=== PATIENT | female | born 1965 | race Hispanic/Latino ===

== ENCOUNTER 2018-01-28 16:24 | Emergency (ER) | payer OTHER ==
[~2018-01-28] VITALS: Ht 157.5 cm; Wt 71.7 kg
[2018-01-28 17:50] LABS: BASOPHILS % 0.2 % (0.0-1.0); EOSINOPHILS # (AUTO) 0.1 (0.0-0.4); EOSINOPHILS % 0.6 % (0.0-6.0); HEMATOCRIT 38.8 % (34.2-44.1); HEMOGLOBIN 13.1 g/dL (12.0-16.0); LYMPHOCYTES # (AUTO) 2.6 (1.0-3.2); LYMPHOCYTES % 27.3 % (18.0-39.1); MEAN CORPUSCULAR HEMOGLOBIN 29.3 pg (28-32); MEAN CORPUSCULAR HGB CONC 33.8 g/dL (31-35); MEAN CORPUSCULAR VOLUME 86.8 fL (81-99); MONOCYTES # (AUTO) 0.7 (0.2-0.8); MONOCYTES % 7.1 % (4.4-11.3); NEUTROPHILS % 64.3 % (38.7-80.0); PLATELET COUNT 402 x10e3/uL (140-360); RED BLOOD COUNT 4.47 x10e6/uL (3.6-5.1); RED CELL DISTRIBUTION WIDTH 12.9 % (11.7-14.4)
[2018-01-28 18:01] LABS: BILIRUBIN,URINE NEGATIVE (NEGATIVE); CLARITY,URINE CLEAR (CLEAR); COLOR,URINE YELLOW (YELLOW); KETONES,URINE NEGATIVE (NEGATIVE); LEUKOCYTE ESTERASE ,URINE 1+ (NEGATIVE); NITRITE,URINE NEGATIVE (NEGATIVE); PROTEIN,URINE DIPSTICK NEGATIVE (NEGATIVE); URINE UROBILINOGEN 0.2 mg/dL (0.2 - 1)
[2018-01-28 18:06] LABS: ALANINE AMINOTRANSFERASE 19 IU/L (0-55); ALBUMIN 3.6 g/dL (3.5-5.0); ALBUMIN/GLOBULIN RATIO 0.8 (0.8-2.0); ALKALINE PHOSPHATASE 121 IU/L (40-150); ANION GAP 13.4 mmol/L (8-16); BLOOD UREA NITROGEN 15 mg/dL (7-26); BUN/CREATININE RATIO 15 (6-25); CALCIUM 9.9 mg/dL (8.4-10.2); CARBON DIOXIDE 27 mmol/L (22-29); CHLORIDE 101 mmol/L (98-107); CREATINE KINASE 61 IU/L (29-168); CREATININE, SERUM 1.01 mg/dL (0.57-1.11); EST GLOMERULAR FILTRATION RATE 57 ML/MIN (60-); GLUCOSE 140 mg/dL (74-118); POTASSIUM 3.4 mmol/L (3.5-5.1); SODIUM 138 mmol/L (136-145)
[2018-01-28 18:10] LABS: BACTERIA,URINE RARE /HPF; EPITHELIAL CELLS,URINE FEW /LPF; MUCUS,URINE FEW (RARE); TRANSITIONAL EPI CELLS,URINE FEW
--- NOTE | 2018-01-28 18:20 | Diagnostic Imaging Report ---
PROCEDURE: A single AP view of the chest. COMPARISON: None. INDICATIONS: HIGH BLOOD PRESSURE/DIZZINESS/CHEST PAIN FINDINGS: Lines/tubes: None. Lungs: The lungs are well inflated and clear. There is no evidence of pneumonia or pulmonary edema. Pleura: There is no pleural effusion or pneumothorax. Heart and mediastinum: The heart and the mediastinum are unremarkable. Bones: No acute bony abnormality. IMPRESSION: 1. No acute cardiopulmonary disease. Dictated by: Nishant Scott M.D. on 01/28/2018 at 18:21 Electronically approved by: Nishant Scott M.D. on 01/28/2018 at 18:21
[2018-01-28 20:21] VITALS: BP 142/91
== END 2018-01-28 20:23 | disposition home or self-care (01) ==
LOC: ER 16:24
DX: R20.2 Paresthesia of skin (principal); N30.90 Cystitis, unspecified without hematuria
CPT/HCPCS: 36415; 71045; 80053; 81001; 82550; 82553; 84484; 85025; 93005; 99284

== ENCOUNTER 2019-04-24 12:11 | Emergency (ER) | payer OTHER ==
[~2019-04-24] VITALS: Ht 157.5 cm; Wt 81.6 kg
--- OUTSIDE RECORDS SUMMARY | 2019-04-24 12:14 | XMS REPORT ---
Author [facility] Address Unknown Phone Unavailable Care Team Providers Care Ballistics Professor Name Role Phone Charlee TURCIOS Unavailable Unavailable Problems This patient has no known problems. Allergies, Adverse Reactions, Alerts This patient has no known allergies or adverse reactions. Medications This patient has no known medications. Results Test Description Test Time Test Comments Text Results Atomic Results Result Comments CHEST SINGLE (PORTABLE) [place] [address] Patient Name: JOSELITO HERR MR #: [id number] : 1965 Age/Sex: 52/F Req #: [id number] Adm Physician: Ordered by: AMENA TURCIOS MD Report #: [id number] Location: ER Room/Bed: Procedure: [id number] DX/CHEST SINGLE (PORTABLE) Exam Date: 01/28/18 Exam Time: 1755 REPORT STATUS: Signed PROCEDURE: A single AP view of the chest. COMPARISON: None. INDICATIONS: HIGH BLOOD PRESSURE/DIZZINESS/CHEST PAIN FINDINGS: Lines/tubes: None. Lungs: The lungs are well inflated and clear. There is no evidence of pneumonia or pulmonary edema. Pleura: There is no pleural effusion or pneumothorax. Heart and mediastinum: The heart and the mediastinum are unremarkable. Bones: No acute bony abnormality. IMPRESSION: 1. No acute cardiopulmonary disease. Dictated by: Shira Scott M.D. on 01/28/2018 at 18:21 Electronically approved by: Shira Scott M.D. on 01/28/2018 at 18:21 Dictated By: SHIRA SCOTT MD 20 Transcribed By: FRANKLIN on 01/28/181820 COPY TO: AMENA TURCIOS MD
--- NOTE | 2019-04-24 13:44 | Diagnostic Imaging Report ---
Exam: Left Knee Series. History: Knee pain Comparison: None Findings: 3 views of the left knee were obtained. No acute fracture or dislocation. Alignment appears anatomic. No joint effusion. There are mild tricompartmental degenerative changes with joint space narrowing and osteophyte formation. Impression: No acute osseous injury. Mild tricompartmental degenerative changes. Signed by: Jay oDwning MD on 04/24/2019 1:41 PM
[2019-04-24 13:51] VITALS: BP 135/65
== END 2019-04-24 13:55 | disposition home or self-care (01) ==
LOC: FSED 12:11
DX: M25.562 Pain in left knee (principal); X50.1XXA Overexertion from prolonged static or awkward postures, initial encounter; Y92.008 Other place in unspecified non-institutional (private) residence as the place of occurrence of the external cause; E11.9 Type 2 diabetes mellitus without complications
CPT/HCPCS: 99283

== ENCOUNTER 2020-01-13 12:40 | Observation (INO) | payer OTHER ==
[~2020-01-13] VITALS: Ht 157.5 cm; Wt 83.0 kg
--- NOTE | 2020-01-13 13:28 | Diagnostic Imaging Report ---
History: Dizziness, slurred speech, 2 hours. Comparison studies: None Technique: Axial images were obtained from the skull base to the vertex. Coronal and sagittal reconstructions obtained from the axial data. Dose modulation, iterative reconstruction, and/or weight based adjustment of the mA/kV was utilized to reduce the radiation dose to as low as reasonably achievable. Findings: Scalp/skull: No abnormalities. No fractures, blastic or lytic lesions. Extra-axial spaces: No masses. No fluid collections. Brain sulci: Appropriate for age. Ventricles: Normal in size and configuration. No hydrocephalus. Parenchyma: No abnormal densities. No masses, hemorrhage, acute or chronic cortical vascular insults. Sellar/suprasellar region: No abnormalities Craniocervical junction: Patent foramen magnum. No Chiari one malformation. IMPRESSION: No abnormalities . Signed by: DR Jeferson Villalobos M.D. on 01/13/2020 1:25 PM
[2020-01-13] MEDS ORDERED: FAMOTIDINE 20 MG TAB PO SCH (13:30)
[2020-01-13] MEDS ORDERED: DEXTROSE 50% SYRINGE 50 ML IV PRN (13:30)
[2020-01-13] MEDS ORDERED: ZOLPIDEM TARTRATE 5 MG TAB PO PRN (13:30)
[2020-01-13] MEDS ORDERED: ACETAMINOPHEN 325 MG TAB PO PRN (13:30)
[2020-01-13] MEDS ORDERED: DIPHENHYDRAMINE HCL INJ 50 MG/ML VIAL IV PRN (13:30)
[2020-01-13] MEDS ORDERED: ONDANSETRON HCL INJ 2MG/ML 2ML 2 MG/ML VIAL IV PRN ×2 (13:30→19:15)
--- NOTE | 2020-01-13 14:55 | NUR ---
Received patient from [facility] ambulance via stretcher. Patient alert/oriented x4, denies pain at this time, no visible signs of distress noted. Ambulated to bed independently, steady gait observed. Oriented to room, call light, bed rails, bathroom, and visiting hours. Verbalized understanding. Thai speaking. 20G IV to right upper arm patent to flush, dressing C/D/I. No neurological deficits noted at this time. Vital signs stable. Call light within reach.
[2020-01-13 15:24] VITALS: BP 145/70
[2020-01-13 16:00] VITALS: BP 145/70
[2020-01-13] MEDS ORDERED: INSULIN REGULAR, HUMAN 100 UNIT/1 ML 3ML VIAL SQ SCH (16:30)
--- NOTE | 2020-01-13 18:45 | NUR ---
Dr. Banks called for order clarification. Ordered Tramadol 50mg every four hours as needed for pain instead of acetaminophen due to allergy. Patient can continue home Metformin 850mg twice daily. Orders read back and verified. No further orders at this time. Remaining home medications to be verified.
[2020-01-13] MEDS ORDERED: TEMAZEPAM 7.5 MG CAP PO PRN (19:00)
--- NOTE | 2020-01-13 19:11 | Diagnostic Imaging Report ---
EXAMINATION: MRI of the brain without contrast. HISTORY: Slurring speech. Transient ischemic attack, hyperglycemia, hypertension. COMPARISON: Head CT 01/13/2020 TECHNIQUE: Sagittal T2; axial DWI, T2, FLAIR, T1-IR, T2 gradient echo; coronal FLAIR. IMAGE QUALITY: Adequate. FINDINGS: Parenchyma: 1. No abnormal signal intensity 2. No mass, hemorrhage, acute or chronic infarcts. Skull: Unremarkable. Vessels: Expected flow voids present in the major arteries and dural sinuses. Extra-axial spaces: No abnormal signal intensity or mass effect. Brain volume: Within normal limits for age. Ventricles: No hydrocephalus or displacement. Foramen magnum: Unremarkable. Sella: Unremarkable. Paranasal / mastoid sinuses: No significant inflammatory disease. IMPRESSION: No intracranial abnormalities, particularly no acute infarct. Signed by: Dr. Dee Umana M.D. on 01/13/2020 7:08 PM
[2020-01-13] MEDS ORDERED: CLONIDINE HCL 0.1 MG TAB PO PRN (19:15)
--- NOTE | 2020-01-13 19:30 | NUR ---
Bedside shift report given to night nurse. Patient resting at this time, no visible signs of distress noted. Call light within reach.
[2020-01-13 20:00] VITALS: BP 119/84
[2020-01-13] MEDS ORDERED: METFORMIN HCL850 MG PO (20:07)
--- NOTE | 2020-01-13 20:11 | Diagnostic Imaging Report ---
EXAM: Abdomen Views INDICATION: ^NAUSEA ^[id number] ^[id number] COMPARISON: None FINDINGS: Nonobstructive bowel gas pattern. No signs of pneumoperitoneum. No calcification overlying renal shadows. No acute osseous abnormality. Lung bases are clear. IMPRESSION: Nonobstructive bowel gas pattern. Signed by: Dr. Del Ho MD on 01/13/2020 8:08 PM
[2020-01-13] MEDS ORDERED: TRAMADOL HCL 50 MG TAB PO PRN (20:15)
[2020-01-13 21:00] VITALS: BP 119/84
[2020-01-13] MEDS ORDERED: INSULIN LISPRO 100 UNIT/1 ML 3ML VIAL SQ SCH (21:00)
[2020-01-13] MEDS ORDERED: SIMVASTATIN 40 MG TAB PO SCH (21:00)
--- NOTE | 2020-01-13 21:00 | NUR ---
Assessment done.no resp.distress.iv to right upperarm 20 g patent.ambulates.bed locked and in lowest position.phone and call light within reach.instructed to call for assistance as needed.
--- NOTE | 2020-01-13 22:25 | History and Physical ---
PRIMARY CARE DOCTOR: Tutu Schofield MD. CHIEF COMPLAINT: Altered mental status. HISTORY OF PRESENT ILLNESS: This is a 54-year-old woman, who presented with altered mental status. Specifically around 11 o'clock this morning the patient felt headache in the back of her head, left side worse than her right side, which she attributed to her migraine. Subsequently it got worse to the point she had no energy and subsequently she just slumped onto the couch. The daughter subsequently noted she was so weak that she could barely speak. Last night before she went to sleep she was a little nauseated. This morning when she woke up the patient had felt tired, which is unusual for her, however, she was able to do her usual thing until 11 o'clock this morning. The patient denies any chest pain, shortness of breath per se, no fever and no cough. The patient does not take aspirin on a regular basis. At home blood pressure was taken, systolic was 200, which prompted emergency room visit, again normally she does not take anything for blood pressure. PAST MEDICAL AND SURGICAL HISTORY: 1. Obesity. 2. Diabetes. 3. . 4. Bladder surgery. MEDICATIONS: Please see medication reconciliation form. ALLERGIES: TYLENOL AND IBUPROFEN. SOCIAL HISTORY: Does not smoke. FAMILY HISTORY: Heart disease and diabetes. REVIEW OF SYSTEMS: A 10-point review of system obtained and nothing else is significant other than what is stated in the HPI. PHYSICAL EXAMINATION: VITAL SIGNS: Temperature 97.6, pulse 84, respiratory rate 18, blood pressure 173/92. GENERAL: No acute distress. SKIN: No rash. HEENT: Anicteric. Oropharynx is clear. LUNGS: Clear bilaterally. HEART: Regular rate and rhythm. Normal S1, S2. ABDOMEN: Soft, nondistended, nontender. Normoactive bowel sounds. MUSCULOSKELETAL: Painless range of motion. NEUROLOGIC: Alert and oriented x3. Cranial nerves II through XII intact. PSYCHIATRIC: No hallucination. LABORATORY DATA: Laboratory quiroz fairly benign with sugar in the 170s. Head CT did not show any acute disease. EKG, nonspecific. ASSESSMENT AND PLAN: 1. Nausea profound generalized weakness with headache, nonspecific, specifically the patient did not endorse slurred speech, however, given hypertensive episode we will monitor overnight on telemetry. We will repeat troponin in the morning. We will get a MRI of the brain, carotid ultrasound and echocardiogram we will also check a lipid panel, for now empiric baby aspirin. We will also check abdominal x-ray. 2. Obesity. 3. Diabetes. We will continue her metformin and glyburide once we know the dosage, we will put her on sliding scale. 4. Headache. We will continue her tramadol that she uses at home p.r.n. 5. GI and DVT prophylaxis is low risk, not indicated unless prolonged hospitalization. MD BETY Helton/ASHOK /[id number] cc: [facility]
[2020-01-14] VITALS: BP 130/65
--- NOTE | 2020-01-14 01:19 | NUR ---
Patient stated that "no allergy to aspirin".
[2020-01-14 04:00] VITALS: BP 115/65
[2020-01-14] MEDS ORDERED: GLIMEPIRIDE2 MG PO (05:44)
--- NOTE | 2020-01-14 06:30 | NUR ---
is okay to do echo &carotid doppler today.
[2020-01-14 06:36] LABS: BASOPHILS % 0.4 % (0.0-1.0); EOSINOPHILS # (AUTO) 0.1 (0.0-0.4); EOSINOPHILS % 1.2 % (0.0-6.0); HEMATOCRIT 36.2 % (34.2-44.1); HEMOGLOBIN 11.7 g/dL (12.0-16.0); LYMPHOCYTES # (AUTO) 3.1 (1.0-3.2); MEAN CORPUSCULAR HEMOGLOBIN 28.5 pg (28-32); MEAN CORPUSCULAR HGB CONC 32.3 g/dL (31-35); MEAN CORPUSCULAR VOLUME 88.1 fL (81-99); MONOCYTES # (AUTO) 0.4 (0.2-0.8); MONOCYTES % 6.2 % (4.4-11.3); NEUTROPHILS # (AUTO) 3.1 (2.1-6.9); NEUTROPHILS % 45.8 % (38.7-80.0); PLATELET COUNT 313 x10e3/uL (140-360); RED BLOOD COUNT 4.11 x10e6/uL (3.6-5.1)
[2020-01-14 06:55] LABS: ANION GAP 12.4 mmol/L (8-16); BLOOD UREA NITROGEN 8 mg/dL (7-26); BUN/CREATININE RATIO 12 (6-25); CARBON DIOXIDE 29 mmol/L (22-29); CHLORIDE 103 mmol/L (98-107); CREATININE, SERUM 0.65 mg/dL (0.57-1.11); EST GLOMERULAR FILTRATION RATE > 60 ML/MIN (60-); GLUCOSE 112 mg/dL (74-118); POTASSIUM 3.4 mmol/L (3.5-5.1); SODIUM 141 mmol/L (136-145)
--- NOTE | 2020-01-14 07:05 | NUR ---
REPORT GIVEN TO ONCOMING RN.STABLE CONDITION.
[2020-01-14 07:17] LABS: CHOL/HDL RATIO 5.6 (3.0-3.6)
--- NOTE | 2020-01-14 08:00 | NUR ---
RECIEVED PT RESTING IN BED. AAO X 3. RESP EVEN WITHOUT DISTRESS. DENIES OF ANY PAIN.
[2020-01-14 08:17] VITALS: BP 123/56
[2020-01-14 08:38] VITALS: BP 115/65
[2020-01-14 08:58] VITALS: BP 143/71
[2020-01-14] MEDS ORDERED: ASPIRIN 325 MG TAB EC PO SCH ×2 (09:00)
[2020-01-14] MEDS ORDERED: METFORMIN HCL 850 MG TAB PO SCH (09:00)
[2020-01-14] MEDS ORDERED: GLIMEPIRIDE 2 MG TAB PO SCH (09:00)
--- NOTE | 2020-01-14 09:30 | NUR ---
ECHO BEING DONE AT BEDSIDE.
[2020-01-14] MEDS ORDERED: LOSARTAN POTASSIUM 25 MG TAB PO SCH (10:15)
[2020-01-14] MEDS ORDERED: POTASSIUM CHLORIDE 20 MEQ TAB CR PO ONE (10:30)
--- NOTE | 2020-01-14 11:00 | NUR ---
DOPPLER BEING DONE AT BEDSIDE.
[2020-01-14 12:09] VITALS: BP 122/68
--- NOTE | 2020-01-14 13:00 | NUR ---
DR. ANDREWS AT BEDSIDE. NEW ORDERS TO DISHARGE PATIENT HOME.
[2020-01-14] MEDS ORDERED: ONDANSETRON HCL 4 MG ORAL DISINTEGRATING TAB PO PRN (14:00)
[2020-01-14] MEDS ORDERED: LIPITOR20 MG PO (14:41)
[2020-01-14] MEDS ORDERED: LOSARTAN PO (14:42)
--- NOTE | 2020-01-14 15:00 | NUR ---
DC'ED IV. DC'ED TELEMETRY. DISCHARGE INSTRUCTIONS GIVEN TO THE PT TO FOLLOW UP WITH PCP IN 1 WEEK. RX GIVEN FOR LOSARTAN AND LIPITOR. INSTRUCTED PT ON DIET, SAFETY, MEDICATIONS AND FOLLOW UP WITH MD. PT VOICED UNDERSTANDING.
--- NOTE | 2020-01-14 15:15 | NUR ---
PT HOME WITH ALL PERSONAL BELONGINGS. PT TO PERSONAL CAR VIA . DAUGHTER [employer]. PT IN STABLE CONDITION.
--- NOTE | 2020-01-14 19:02 | Discharge Summary ---
PRIMARY CARE DOCTOR: Tutu Schofield MD. FINAL DIAGNOSIS: Uncontrolled hypertension. SECONDARY DIAGNOSES: 1. Uncontrolled diabetes with hyperglycemia. 2. Dyslipidemia. 3. Headache, nonspecific. CONSULTANTS: None. PROCEDURES/STUDIES PERFORMED: 1. Both EKG and brain an MRI are unremarkable. 2. Carotid ultrasound was unremarkable. 3. Echocardiogram was unremarkable. HISTORY: Per dictated H and P. HOSPITAL COURSE: The patient came in to rule out TIA. MRI was normal. History was not consistent, therefore this was not a TIA. Given that she is diabetic even though she is not very hypertensive now, I will still go ahead and send her home on just 12.5 mg of losartan for renal protection. The patient's hemoglobin A1c is 7.3%. Her LDL is 186. Lipitor 20 mg was prescribed. The patient was seen and examined today. CONDITION ON DISCHARGE: Improved. DISCHARGE MEDICATIONS: Please see medication reconciliation form. ching MD BETY Momin/ASHOK /[id number] cc: [facility] Neal Schofield MD
[2020-01-14] MEDS ORDERED: ATORVASTATIN 20 MG TAB PO SCH (21:00)
== END 2020-01-14 15:15 | disposition home or self-care (01) ==
LOC: FSED 12:40 → ERHOLD 14:03 → MED/SURG3 14:55
PROVIDERS: ADMIT Internal Medicine; ATTEND Internal Medicine
DX: E11.65 Type 2 diabetes mellitus with hyperglycemia (principal); E78.5 Hyperlipidemia, unspecified; R51 Headache; G43.909 Migraine, unspecified, not intractable, without status migrainosus; E66.9 Obesity, unspecified; Z68.33 Body mass index [BMI] 33.0-33.9, adult
CPT/HCPCS: 36415 ×2; 70450; 70551; 74018; 80048; 80053; 80061; 81003; 82553; 82948 ×2; 83036; 84484 ×2; 85025 ×2; 93005; 93306; 93880; 99284; G0378 ×2; J1200; J1817; J2405